=== PATIENT | male | born 1985 | race Caucasian/White ===

== ENCOUNTER 2019-02-11 16:21 | Emergency (ER) | payer SELFPAY ==
[2019-02-11 16:51] VITALS: BP 107/88
--- NOTE | 2019-02-11 16:58 | UC ---
Throat Pain/Nasal Giuseppe HPI - HPI Summary HPI Summary: 33 yo male with sore throat and fever x 2 days recent exposure to strep PETERSEN and sl myalgias - History of Current Complaint Chief Complaint: UCGeneralIllness Stated Complaint: SORE THROAT/SINUS Time Seen by Provider: 02/11/19 16:54 Hx Obtained From: Patient Onset/Duration: Gradual Onset, Lasting Days Severity: Mild Pain Intensity: 4 Pain Scale Used: 0-10 Numeric Associated Signs & Symptoms: Positive: Nasal Discharge, Fever. Negative: Dysphagia, FB Sensation, Drooling, Wheezing, Hoarseness, Sinus Discomfort, Vomiting, Rash Related History: Prior ENT Surgery, T & A - Epiglottits Risk Factors Epiglottis Risk Factors: Negative - Allergies/Home Medications Allergies/Adverse Reactions: Allergies Allergy/AdvReac Type Severity Reaction Status Date / Time Penicillins Allergy Airway Verified 02/11/19 16:51 Obstruction Home Medications: Home Medications Acetaminophen [Tylenol] 650 mg PO PRN 02/11/19 [History] PMH/Surg Hx/FS Hx/Imm Hx Previously Healthy: Yes - Surgical History Surgical History: Yes Surgery Procedure, Year, and Place: [place], cyst removal penis as a child - Social History Alcohol Use: Occasionally Substance Use Type: None Smoking Status (MU): Heavy Every Day Tobacco Smoker Type: Cigarettes Review of Systems All Other Systems Reviewed And Are Negative: Yes Constitutional: Positive: Fever, Chills Skin: Positive: Negative Eyes: Positive: Negative ENT: Positive: Sore Throat, Nasal Discharge Respiratory: Positive: Negative Cardiovascular: Positive: Negative Gastrointestinal: Positive: Negative Genitourinary: Positive: Negative Motor: Positive: Negative Neurovascular: Positive: Negative Musculoskeletal: Positive: Negative Neurological: Positive: Negative Psychological: Positive: Negative Physical Exam Triage Information Reviewed: Yes Appearance: Well-Appearing, No Pain Distress, Well-Nourished Vital Signs: Initial Vital Signs Temp 100.8 F 02/11/19 16:45 Pulse 96 02/11/19 16:45 Resp 16 02/11/19 16:45 BP 107/88 02/11/19 16:45 Pulse Ox 99 02/11/19 16:45 Vital Signs Reviewed: Yes Eyes: Positive: Conjunctiva Clear ENT: Positive: Pharyngeal erythema, Uvula midline. Negative: Nasal congestion, Nasal drainage, Tonsillar swelling, Tonsillar exudate, Trismus, Muffled voice, Hoarse voice, Dental tenderness Dental: Positive: Other: - porr dentition Neck: Positive: Supple, Enlarged Nodes @ - tender ant cerv Respiratory: Positive: Lungs clear, Normal breath sounds, No respiratory distress, No accessory muscle use Cardiovascular: Positive: RRR, No Murmur Musculoskeletal: Positive: ROM Intact, No Edema Neurological: Positive: Alert Psychological Exam: Normal Skin Exam: Normal Throat Pain/Nasal Course/Dx - Course Course Of Treatment: strep (-) - Differential Dx/Diagnosis Provider Diagnosis: Pharyngitis, Strep throat exposure Discharge - Sign-Out/Discharge Documenting (check all that apply): Patient Departure All imaging exams completed and their final reports reviewed: No Studies - Discharge Plan Condition: Stable Disposition: HOME Prescriptions: Azithromycin TAB* [Zithromax TAB*] 250 mg PO DAILY #6 tab Patient Education Materials: Pharyngitis (ED) Forms: *Work Release Referrals: No Primary Care Phys,NOPCP [Primary Care Provider] - Additional Instructions: recheck in 3-4 days if not better - Billing Disposition and Condition Condition: STABLE Disposition: Home
== END 2019-02-11 17:18 | disposition home or self-care (01) ==
LOC: UCCORT 16:21
DX: J02.9 Acute pharyngitis, unspecified (principal); R50.9 Fever, unspecified; R09.81 Nasal congestion; Z88.0 Allergy status to penicillin; F17.210 Nicotine dependence, cigarettes, uncomplicated
CPT/HCPCS: 87651; 99202; G0463

== ENCOUNTER 2019-04-07 13:06 | Emergency (ER) | payer SELFPAY ==
[2019-04-07 13:20] VITALS: BP 105/61
--- NOTE | 2019-04-07 13:31 | UC ---
Cardiac HPI - HPI Summary HPI Summary: 33-year-old male who has left-sided rib pain for 2 days. He states it was a sudden onset during the night. He denies a difficulty breathing however he does have pain on deep inspiration. He is a smoker - History of Current Complaint Chief Complaint: UCGeneralIllness Stated Complaint: LEFT SIDE RIB AREA PAIN x2 DAYS Time Seen by Provider: 04/07/19 13:15 Hx Obtained From: Patient Onset/Duration: Sudden Onset - Sudden onset 2 days ago. Initial Severity: Mild Current Severity: Mild Pain Intensity: 4 Chest Pain Location: Left Anterior - Left anterior lower ribs. Aggravating Factor(s): Deep Breaths Alleviating Factor(s): Nothing Associated Signs & Symptoms: Positive: Negative - Risk Factors Pulmonary Embolism Risk Factors: Negative Cardiac Risk Factors: Negative Atrial Fibrillation: Negative TAD Risk Factors: Negative - Allergy/Home Medications Allergies/Adverse Reactions: Allergies Allergy/AdvReac Type Severity Reaction Status Date / Time Penicillins Allergy Airway Verified 04/07/19 13:14 Obstruction Home Medications: Home Medications Ibuprofen TAB* [Advil TAB*] 200 mg PO Q6H PRN 04/07/19 [History Confirmed ] PMH/Surg Hx/FS Hx/Imm Hx Previously Healthy: Yes - Surgical History Surgical History: Yes Surgery Procedure, Year, and Place: [place], cyst removal penis as a child - Family History Known Family History: Positive: Non-Contributory - Social History Alcohol Use: Occasionally Substance Use Type: None Smoking Status (MU): Heavy Every Day Tobacco Smoker Type: Cigarettes Amount Used/How Often: 1/2 PPD Have You Smoked in the Last Year: Yes Review of Systems All Other Systems Reviewed And Are Negative: Yes Respiratory: Positive: Other - Patient states that he has some pain on deep inspiration on the left lower ribs.. Negative: Shortness Of Breath, Cough Cardiovascular: Positive: Other - Left lower rib pain. Patient is able to replicate it with turning to the right, however he can also replicate it with a deep inspiration. Is Patient Immunocompromised?: No Physical Exam Triage Information Reviewed: Yes Appearance: Well-Appearing, No Pain Distress, Well-Nourished Vital Signs: Initial Vital Signs Temp 98.8 F 04/07/19 13:15 Pulse 59 04/07/19 13:15 Resp 18 04/07/19 13:15 BP 105/61 04/07/19 13:15 Pulse Ox 98 04/07/19 13:15 Vital Signs Reviewed: Yes Eyes: Positive: Conjunctiva Clear ENT: Positive: Hearing grossly normal, Pharynx normal, TMs normal, Uvula midline. Negative: Trismus, Muffled voice Neck: Positive: Supple, Nontender, No Lymphadenopathy Respiratory: Positive: Chest non-tender, Lungs clear, Normal breath sounds, No respiratory distress, No accessory muscle use, Other: - Chest wall is nontender on palpation, no erythema, bruising, deformity or swelling. No crepitus. Cardiovascular: Positive: RRR, No Murmur, Pulses Normal, Brisk Capillary Refill Abdomen Description: Positive: Nontender, No Organomegaly, Soft Bowel Sounds: Positive: Present Musculoskeletal Exam: Normal Neurological Exam: Normal Psychological Exam: Normal Skin Exam: Normal - Assessment/Plan Course Of Treatment: CXR: VIEWS: FINDINGS: CARDIOMEDIASTINAL SILHOUETTE: The cardiomediastinal silhouette is normal. MILAGROS: The milagros are normal. PLEURA: The costophrenic angles are sharp. No pleural abnormalities are noted. LUNG PARENCHYMA: The lungs are clear. ABDOMEN: The upper abdomen is clear. There is no subphrenic gas. BONES AND SOFT TISSUES: No bone or soft tissue abnormalities are noted. OTHER: None. IMPRESSION: NO ACTIVE CARDIOPULMONARY DISEASE. At this point time I think this is more a muscle strain however I did advise the patient that because he has a pain on deep inspiration he should go to the emergency room for further evaluation. We did discuss primary embolus however the patient prefers to wait and take some Motrin over the next day or 2 but he stated he will go to the ER if he has any worsening symptoms, shortness of breath, increased chest pain with deep inspiration. He's had no history of surgery recently and no history of blood clots or pulmonary embolus. He also denies calf pain. - Clinical Impression Provider Diagnosis: Muscle strain of chest wall Discharge - Sign-Out/Discharge Documenting (check all that apply): Patient Departure All imaging exams completed and their final reports reviewed: Yes - Discharge Plan Condition: Fair Disposition: HOME-RECOMMEND TO ED Patient Education Materials: Muscle Strain (DC) Forms: *Work Release Referrals: No Primary Care Phys,NOPCP [Primary Care Provider] - [facility] [Outside] Additional Instructions: If you develop any worsening symptoms, shortness of breath, increased chest pain your to go to the emergency room for further treatment. - Billing Disposition and Condition Condition: FAIR Disposition: Home-Recommend to ED - Attestation Statements Provider Attestation: I was available for consult. This patient was seen by the DAVID. The patient was not presented to, seen by, or examined by me. -Cindy
== END 2019-04-07 13:56 | disposition home health service (06) ==
LOC: UCCORT 13:06
DX: S29.011A Strain of muscle and tendon of front wall of thorax, initial encounter (principal); X58.XXXA Exposure to other specified factors, initial encounter; F17.210 Nicotine dependence, cigarettes, uncomplicated
CPT/HCPCS: 71046; 99212; G0463

== ENCOUNTER 2019-07-22 16:55 | Emergency (ER) | payer SELFPAY ==
[2019-07-22 17:59] VITALS: BP 101/58
--- NOTE | 2019-07-22 18:01 | UC ---
Abdominal Pain Male HPI - HPI Summary HPI Summary: 33-year-old male presents with complaints of one-week history of intermittent left-sided abdominal pain. States had onset of the abdominal pain one week ago with nausea, vomiting, and watery diarrhea. States the vomiting and diarrhea subsided for a few days but the pain persisted. Today started having the nausea vomiting and diarrhea again. States he has had 5 or 6 episodes of vomiting the last episode approximately 2 hours prior to arrival. He has had 3 episodes of watery diarrhea today. Patient describes the pain as a constant "sharp, twisting" pain. No recent travel, antibiotic use, or consumption of oral or undercooked meat or seafood. Denies fever, chills, back or flank pain, dysuria, frequency, urgency, or hematuria. - History of Current Complaint Chief Complaint: UCGI Stated Complaint: VOMITING Time Seen by Provider: 07/22/19 17:36 Hx Obtained From: Patient Pain Intensity: 4 - Allergies/Home Medications Allergies/Adverse Reactions: Allergies Allergy/AdvReac Type Severity Reaction Status Date / Time Penicillins Allergy Hives Verified 07/22/19 17:10 Home Medications: Home Medications NK [No Home Medications Reported] 07/22/19 [History Confirmed 07/22/19] PMH/Surg Hx/FS Hx/Imm Hx Previously Healthy: Yes - Denies significant PMH - Surgical History Surgical History: Yes Surgery Procedure, Year, and Place: [place], cyst removal penis as a child - Family History Known Family History: Positive: Other - Uncle with crohn's disease - Social History Occupation: Employed Full-time Lives: Alone Alcohol Use: Occasionally Substance Use Type: None Smoking Status (MU): Heavy Every Day Tobacco Smoker Type: Cigarettes Amount Used/How Often: 1/2 PPD Have You Smoked in the Last Year: Yes Review of Systems All Other Systems Reviewed And Are Negative: Yes Constitutional: Negative: Fever, Chills Respiratory: Positive: Negative Cardiovascular: Positive: Negative Gastrointestinal: Positive: Abdominal Pain, Vomiting, Diarrhea, Nausea Genitourinary: Negative: Dysuria, Hematuria, Frequency, Urgency Musculoskeletal: Positive: Negative Neurological: Positive: Negative Is Patient Immunocompromised?: No Physical Exam - Summary Physical Exam Summary: GENERAL APPEARANCE: Well developed, well nourished, alert and cooperative, and appears to be in no acute distress. EYES: Conjunctiva clear. No drainage. EARS: External auditory canals and tympanic membranes clear, hearing grossly intact. NOSE: No nasal discharge. THROAT: Pharynx normal No tonsilar inflammation, swelling, exudate, or lesions. Uvula midline. NECK: Neck supple, non-tender without lymphadenopathy. CARDIAC: Normal S1 and S2. No S3, S4 or murmurs. Rhythm is regular. There is no peripheral edema, cyanosis or pallor. Extremities are warm and well perfused. Capillary refill is less than 2 seconds. Peripheral pulses intact. LUNGS: Clear to auscultation without rales, rhonchi, wheezing or diminished breath sounds. ABDOMEN: Positive bowel sounds. Soft, nondistended. Tenderness to the LUQ and LLQ with guarding. No masses or hepatosplenomegally. No CVA tenderness. MUSKULOSKELETAL: ROM intact to all extremities. No joint erythema or tenderness. Normal muscular development. Normal gait. SKIN: Skin normal color, texture and turgor with no lesions or eruptions. Triage Information Reviewed: Yes Vital Signs: Initial Vital Signs Temp 98.7 F 07/22/19 17:10 Pulse 81 07/22/19 17:10 Resp 16 07/22/19 17:10 BP 111/56 07/22/19 17:10 Pulse Ox 98 07/22/19 17:10 Vital Signs Reviewed: Yes Abd Pain Male Course/Dx - Course Course Of Treatment: 33-year-old male presents with complaints of one-week history of intermittent left-sided abdominal pain. States had onset of the abdominal pain one week ago with nausea, vomiting, and watery diarrhea. States the vomiting and diarrhea subsided for a few days but the pain persisted. Today started having the nausea vomiting and diarrhea again. States he has had 5 or 6 episodes of vomiting the last episode approximately 2 hours prior to arrival. He has had 3 episodes of watery diarrhea today. Patient describes the pain as a constant "sharp, twisting" pain. No recent travel, antibiotic use, or consumption of oral or undercooked meat or seafood. Denies fever, chills, back or flank pain, dysuria, frequency, urgency, or hematuria. At triage patient was afebrile when stable vital signs. Orthostatic vitals reflected some hypotension without tachycardia and patient was not symptomatic with position change. On exam patient had tenderness to the left upper and left lower quadrants with some guarding. Remainder of exam was unremarkable. Considering the significant pain and the duration of his symptoms I am recommending the patient. Evaluated in the emergency room at this time. He is agreeable to this and is electing to transport via private vehicle. - Differential Dx/Clinical Impression Differential Diagnosis/HQI/PQRI: Diverticulitis, Other - gastroenteritis, colitis Provider Diagnosis: Left sided abdominal pain Discharge ED - Sign-Out/Discharge Documenting (check all that apply): Patient Departure All imaging exams completed and their final reports reviewed: No Studies - Discharge Plan Condition: Stable Disposition: HOME-RECOMMEND TO ED Patient Education Materials: Acute Abdominal Pain (ED) Referrals: No Primary Care Phys,NOPCP [Primary Care Provider] - Additional Instructions: With the duration of your symptoms and the abdominal tenderness on exam I am recommending that you go to the emergency room for further evaluation. Go directly to the emergency room from here. Do not eat of drink anything until you have been evaluated. - Billing Disposition and Condition Condition: STABLE Disposition: Home-Recommend to ED - Attestation Statements Provider Attestation: Per institutional requirements, I have reviewed the chart, however, I was not consulted specifically or made aware of this patient by the midlevel provider. I did not personally evaluate, interact with , or disposition this patient.
== END 2019-07-22 18:15 | disposition home health service (06) ==
LOC: UCCORT 16:55
DX: R10.9 Unspecified abdominal pain (principal); F17.210 Nicotine dependence, cigarettes, uncomplicated
CPT/HCPCS: 99212; G0463

== ENCOUNTER 2020-01-29 15:47 | Emergency (ER) | payer SELFPAY ==
--- NOTE | 2020-01-29 17:03 | UC ---
Throat Pain/Nasal Giuseppe HPI - HPI Summary HPI Summary: 34yo male presenting with sore throat and "mucous in his throat that makes him cough" x3-4 days. Notes nasal congestion. Notes watery eyes. Denies persistent cough. Denies loss of taste and smell. Denies chest pain and sob. Denies fever, chills, body aches. Admits to having seasonal allergies and states this feels similar. Also states he gets strep throat almost every year around this time. Denies ill contacts. Denies concern for influenza or covid 19. - History of Current Complaint Chief Complaint: UCGeneralIllness Stated Complaint: SORE THROAT, HEADACHE, CONGESTION Hx Obtained From: Patient Pain Intensity: 0 - Allergies/Home Medications Allergies/Adverse Reactions: Allergies Allergy/AdvReac Type Severity Reaction Status Date / Time Penicillins Allergy Hives Verified 01/29/20 16:05 Home Medications: Home Medications NK [No Home Medications Reported] 07/22/19 [History Confirmed 01/29/20] PMH/Surg Hx/FS Hx/Imm Hx - Surgical History Surgical History: Yes Surgery Procedure, Year, and Place: [place], cyst removal penis as a child - Family History Known Family History: Positive: Other - Uncle with crohn's disease, Non- Contributory - Social History Alcohol Use: Occasionally Substance Use Type: None Smoking Status (MU): Heavy Every Day Tobacco Smoker Type: Cigarettes Amount Used/How Often: 1/2 PPD Have You Smoked in the Last Year: Yes Review of Systems All Other Systems Reviewed And Are Negative: Yes Constitutional: Positive: Negative Eyes: Positive: Other - watery eyes b/l ENT: Positive: Sore Throat, Sinus Congestion, Other - PND Respiratory: Positive: Cough. Negative: Shortness Of Breath Cardiovascular: Positive: Negative Gastrointestinal: Positive: Negative Musculoskeletal: Positive: Negative Neurological/Mental Status: Positive: Negative Physical Exam - Summary Physical Exam Summary: Vital Signs Reviewed: Yes A+Ox3, no distress, well-appearing Eyes: Conjunctiva mildly inflamed b/l ENT: Hearing grossly normal, TM x 2 clear, moist, uvula midline, no exudate, + pharyngeal erythema, +PND Neck: Positive: Supple without lymphadenopathy Respiratory: Positive: No respiratory distress, No accessory muscle use + CTA throughout no w/r Cardiovascular: RRR nl s1, s2 no m/r Musculoskeletal Exam: BLANTON x 4 without difficulty Neurological: Positive: Alert Psychological: Positive: age appropriate behavior Skin: Positive: no rash, no ecchymosis Vital Signs: Vital Signs (72 hours) 01/29/20 17:38 Temperature 97.9 F Pulse Rate 79 Respiratory 14 Rate Blood Pressure 104/68 (mmHg) O2 Sat by Pulse 96 Oximetry Lab Results 01/29/20 Range/Units 17:36 Group A Strep Rapid Negative (Negative) Throat Pain/Nasal Course/Dx - Course Course Of Treatment: Negative rapid strep test. Patient declined flu and covid19 testing. I instructed patient to take allergy medication and add saline spray or flonase for allergy symptoms. Instructed to return or follow up with pcp with new or worsening symptoms. Patient voiced understanding and agreed with treatment plan. - Differential Dx/Diagnosis Provider Diagnosis: Pharyngitis, Post-nasal drip Discharge ED - Sign-Out/Discharge Documenting (check all that apply): Patient Departure All imaging exams completed and their final reports reviewed: No Studies - Discharge Plan Condition: Stable Disposition: HOME Patient Education Materials: Pharyngitis (ED), Allergies (ED) Forms: *Work Release Referrals: No Primary Care Phys,NOPCP [Primary Care Provider] - Additional Instructions: As discussed, you tested negative for strep throat today. You may take ibuprofen and/or tylenol as directed for pain relief. You may use over the counter throat sprays or lozenges for symptomatic relief. Zyrtec or Claritin along with a nasal saline spray or Flonase may also help alleviate allergy symptoms. Get plenty of rest and fluids. Return or follow up with pcp if symptoms not improving within 7-10 days. - Billing Disposition and Condition Condition: STABLE Disposition: Home - Attestation Statements Provider Attestation: Chart has been reviewed. I did not see the patient but was available for consult. EK.
[2020-01-29 17:38] VITALS: BP 104/68
== END 2020-01-29 17:52 | disposition home or self-care (01) ==
LOC: UCCORT 15:47
DX: J02.9 Acute pharyngitis, unspecified (principal); R09.82 Postnasal drip; Z88.0 Allergy status to penicillin; F17.210 Nicotine dependence, cigarettes, uncomplicated
CPT/HCPCS: 87651; 99212; G0463